=== PATIENT | male | born 2005 | race Two or more races ===

== ENCOUNTER 2025-02-27 16:01 | Emergency (ER) | payer BC, SELFPAY ==
[2025-02-27 16:29] VITALS: BP 128/80; PULSE 90; RESP 18; TEMP 39.4; O2SAT 97; BMI 27.1
--- NOTE | 2025-02-27 16:30 | XR_ITS ---
Examination: PA lateral chest 2 views TECHNIQUE: Upright PA lateral chest 2 views Exam date and time: February 27, 2025 1639 hours INDICATIONS: Fever sore throat difficulty breathing bodyaches beginning 3 days ago. FINDINGS: Normal heart size Lungs are clear. The osseous structures are intact IMPRESSION: No active disease
--- NOTE | 2025-02-27 16:31 | EDNOTE_ITS ---
Upper Respiratory Inf. RME/HPI General Chief Complaint: Flu Like Symptoms Stated Complaint: FEVER, SWOLLEN TONSILS, BODYACHES Time Seen by Provider: 02/27/25 16:14 Source: patient Arrival date/time: 02/27/25 16:01 19-year-old male with no known medical history presents to the emergency room with a chief complaint of fever, sore throat, difficulty breathing, body aches x 3 days Mode of arrival: ambulatory Limitations: no limitations Related Data Previous Rx's ?Medication ?Instructions ?Recorded acetaminophen 325 mg capsule 650 mg (2 x 325 mg) PO QI D PRN 02/27/25 fever or pain 7 days #30 caps azithromycin 500 mg tablet 500 mg PO QDAY 5 days #5 ta bs 02/27/25 Allergies Allergy/AdvReac Type Severity Reaction Status Date / Time PENICILLIN Allergy Intermediate Rash Uncoded 02/27/25 16:04 Review of Systems Review of Systems Systems Reviewed: All systems reviewed, normal except as documented Constitutional Constitutional: Reports system reviewed and no additional complaints, except as documented, Denies fatigue, Denies fever(s), Denies headache(s) and Denies weakness Eyes Eyes: Reports system reviewed and no additional complaints, except as doc umented, Denies blurry vision and Denies change in vision ENT Ears, Nose, Mouth, and Throat: Reports system reviewed and no additional complaints, except as documented, Denies otalgia, Denies headache(s), Denies nasal congestion, Reports sore throat, Denies throat swelling and Denies vertigo Cardiovascular Cardiovascular: Reports system reviewed and no additional complaints, except as documented, Denies chest pain, Denies dyspnea and Denies dyspnea on exertion Respiratory Respiratory: Reports system reviewed and no additional complaints, except as documented, Denies chest congestion, Denies cough, Denies dyspnea, Denies dyspnea on exertion and Denies wheezing Gastrointestinal Gastrointestinal: Reports system reviewed and no additional complaints, except as documented, Denies abdominal pain, Denies cramping, Denies nausea and Denies vomiting Genitourinary Genitourinary: Reports system reviewed and no additional complaints, except as documented, Denies dysuria and Denies hematuria Musculoskeletal Musculoskeletal: Reports system reviewed and no additional complaints, except as documented and Denies back pain Integumentary/Breasts Skin/Breast: Reports system reviewed and no additional complaints, except as documented and Denies wounds Neurologic Neurologic: Reports system reviewed and no additional complaints, except as documented, Denies confusion, Denies headache(s), Denies lack of coordination, Denies vertigo and Denies weakness Psychiatric Psychiatric: Reports system reviewed and no additional complaints, except as documented, Denies anxiety, Denies confusion, Denies depression, Denies paranoia, Denies suicidal ideation and Denies tactile hallucinations Endocrine Endocrine: Reports system reviewed and no additional complaints, except as documented and Denies fatigue Hematologic/Lymphatic Hematologic/Lymphatic: Reports system reviewed and no additional complaints, except as documented and Denies lymphadenopathy Allergic/Immunologic Allergic/Immunologic: Reports system reviewed and no additional complaints, except as documented, Denies throat swelling, Denies urticaria and Denies wheezing Past Medical History Social History SMOKING STATUS: Current every day smoker ED Exam General Limitations: Present no limitations General appearance: Present alert and in no apparent distress Head Head exam: Present atraumatic Eye Eye exam: Present normal appearance, PERRL and EOMI ENT ENT exam: Present normal exam, normal oropharynx and mucous membranes moist Expanded ENT Exam External ear exam: Present normal external inspection Mouth exam: Present normal external inspection Teeth exam: Present normal inspection Throat exam: Present tonsillar erythema and tonsillar exudate; Absent R peritonsillar mass, L peritonsillar mass or muffled voice Neck Neck exam: Present normal inspection, full ROM and trachea midline Chest Chest inspection: Present normal inspection and symmetric chest wall rise Respiratory Respiratory exam: Present normal lung sounds bilaterally Cardiovascular Cardiovascular exam: Present regular rate, normal rhythm and normal heart sounds Abdominal Exam Abdominal exam: Present soft and normal bowel sounds Extremities Exam Extremities exam: Present normal inspection and full ROM Back Exam Back exam: Present normal inspection and full ROM Neurological Exam Neurological exam: Present alert, oriented X3 and CN II-XII intact Psychiatric Psychiatric exam: Present normal affect and normal mood Skin Skin exam: Present warm, dry, intact and normal color Course Quality Measures none Orders Category Date Time Status Bedside COVID-19 Antigen Test NOW Care 02/27/25 16:30 Active Bedside Influenza A&B Antigen Test NOW Care 02/27/25 16:30 Completed XR chest 2V Stat Exams 02/27/25 16:30 Completed Acetaminophen Tab [Tylenol ES Tab] Med 02/27/25 16:36 Discontinued 1,000 mg PO X1 ONE Ibuprofen Tab [Motrin Tab] Med 02/27/25 16:36 Discontinued 600 mg PO X1 ONE cefTRIAXone [Rocephin] 1,000 mg Med 02/27/25 16:30 Discontinued Lidocaine 1% 20 ml [Xylocaine 1% 20 ML] 2.1 ml IM X1 Vital Signs Vital signs: Vital Signs Temperature 103 F H 02/27/25 16:29 Pulse Rate 90 02/27/25 16:29 Respiratory Rate 18 02/27/25 16:29 Blood Pressure 128/80 02/27/25 16:29 Pulse Oximetry (%) 97 02/27/25 16:29 Oxygen Delivery Method Room Air 02/27/25 16:29 O2 saturation 97% within normal limits Upper Respiratory Infection MDM Narrative MDM Narrative:: 19-year-old male with no known medical history presents to the emergency room with a chief complaint of fever, sore throat, difficulty breathing, body aches x 3 days Patient was febrile 103 ?F. He was not tachycardic and not tachypneic and his O2 saturation is 97 on room air. After reevaluation antipyretics patient's temperature dropped to 100.8. Lung sounds are clear bilaterally there is no wheezing or any abnormal breath sounds. COVID-19 and influenza test were both negative Chest x-ray was negative for any pneumonic infiltrates. ENT examination shows an erythemic posterior pharynx with bilateral exudates to the tonsillar pillars. There is a cobblestone appearance to the back of the pharynx. A shot of Rocephin was given to help with the patient's pharyngitis. Antibiotics were sent to the patient's pharmacy Patient was discharged and educated to follow-up with primary care provider in the next 24 to 48 hours and return to the emergency room for any evidence of worsening signs or symptoms Patient data External records reviewed:: [facility] previous records Clinical information provided by:: patient Social determinants that could affect healthcare access:: none Patient has the following chronic illnesses:: No chronic illness How is presenting disease/condition affected by chronic disease/condition?: no chronic disease Evaluation data The following diagnostics were reviewed and interpreted by me:: lab results and radiology exam(s) Lab and/or radiology exams considered but not ordered:: Labs and radiology exams considered and ordered Interpretation Summary: N/A Medications / Prescriptions Medications or Prescriptions considered but not ordered:: Rx given Medication administrations:: Medication Administration History Discontinued Medications Acetaminophen (Acetaminophen 500 Mg Tablet) 1,000 mg PO X1 ONE Stop: 02/27/25 16:37 Last Admin: 02/27/25 16:55 Dose: 1,000 mg Documented By: ISIDRO Ceftriaxone Sodium 1,000 mg/ (Lidocaine HCl 2.1 ml) 0 mg IM X1 ONE Stop: 02/27/25 16:31 Last Admin: 02/27/25 16:54 Dose: 1,000 mg Documented By: ISIDRO Ibuprofen (Ibuprofen Tab 600 Mg Tablet) 600 mg PO X1 ONE Stop: 02/27/25 16:37 Last Admin: 02/27/25 16:55 Dose: 600 mg Documented By: Rx given Consultations Consultation(s) initiated? (list below): No Diagnosis Upper Respiratory Differential Diagnosis: upper respiratory infection, viral infection, bronchitis, influenza and pharyngitis Most likely diagnosis given after review of the tests above:: Pharyngitis Admission Indicated Admission indicated?: not indicated Admission Request Was there a request for admission?: No Disposition Plan Disposition Plan: Discharge Discharge Attestation Discharge Attestation: The patient and all family members were given an opportunity to ask questions and understood the discharge instructions. Discharge instructions specifically effects, indications for sooner follow up or return to the emergency department, and the expected course of current diagnosis. Patient condition: Stable Discharge Plan Plan Patient Disposition: HOME (Self Care) Disposition Comment: Stable Prescriptions/Referrals Prescriptions/Med Rec: New azithromycin 500 mg tablet 500 mg PO QDAY 5 Days Qty: 5 0RF acetaminophen 325 mg capsule 650 mg PO QID PRN (Reason: fever or pain) 7 Days Qty: 30 0RF Referrals: No Primary/Family,Physician [Primary Care Provider] - In 1 week Problem List Clinical Impression: Pharyngitis Patient/Caregiver Discharge Instructions Education Materials: When You Have a Sore Throat Additional Instructions: Please follow-up with your primary care provider in the next 24 to 48 hours. Medication was sent to your pharmacy please pick it up and take it as indicated. For any evidence of worsening signs or symptoms return to the emergency room immediately Print Language: Azeri Stand Alone Forms: [employer] Award Info., Work/School Release, Patient Portal Info Letter PA/KAREN Supervising Physician INES/KAREN Supervising Physician: Dr Rojo
[2025-02-27] MEDS: cefTRIAXone 1,000 MG, LIDOCAINE 1% 20 ML 2.1 ML IM (16:54)
[2025-02-27 16:55] VITALS: TEMP 39.4
[2025-02-27] MEDS: IBUPROFEN TAB 600 MG TABLET PO (16:55)
[2025-02-27] MEDS: ACETAMINOPHEN 500 MG TABLET 1000 MG PO (16:55)
[2025-02-27 17:27] VITALS: TEMP 38.2
[2025-02-27 17:32] VITALS: TEMP 37.7
== END 2025-02-27 18:00 | disposition home or self-care (01) ==
PROVIDERS: Emergency Provider Emergency Medicine
DX: J02.9 Acute pharyngitis, unspecified (principal); F17.200 Nicotine dependence, unspecified, uncomplicated
CPT/HCPCS: 71046; 87400; 87811; 96372; 99283; J0696; J3490; A9270

== ENCOUNTER 2025-03-04 15:56 | Emergency (ER) | payer BC, SELFPAY ==
[2025-03-04 16:55] VITALS: BP 121/73; PULSE 60; RESP 18; TEMP 36.8; O2SAT 99
--- NOTE | 2025-03-04 17:05 | EDNOTE_ITS ---
ED General RME/HPI General Chief complaint: General Adult/Misc Complain Stated complaint: SHARP PAIN IN CHEST WHEN SWALLOWING FOOD X3-4DAYS Time Seen by Provider: 03/04/25 17:01 Arrival date/time: 03/04/25 15:56 RME / HPI RME / HPI narrative: 19-year-old male presents to the ED with complaint of right sided chest pain and right upper quadrant pain after eating. He denies vomiting or diarrhea, fever or chills, dysuria or frequency. He denies any cough or shortness of breath. Related Data Previous Rx's ?Medication ?Instructions ?Recorded famotidine 20 mg tablet 20 mg PO .Nightly GERD #30 t abs 03/04/25 pantoprazole 20 mg tablet,delayed 20 mg PO QAM GERD #3 0 tabs 03/04/25 release Allergies Allergy/AdvReac Type Severity Reaction Status Date / Time Penicillins Allergy Mild Rash Verified 03/04/25 16:02 Review of Systems Review of Systems Systems Reviewed: All systems reviewed, normal except as documented Past Medical History Social History SMOKING STATUS: Current every day smoker ED Exam Narrative Physical exam: A&O, afebrile and non-toxic appearing 19 year old male, no acute distress. Lung are clear, RRR, Abdomen is non-distended. Moves all extremities well. Course Course Course Narrative: Vitals are stable. EKG reveals Sinus Bradycardia at 53 with arrhythmia. No STEMI. XR Chest reveals: No active disease. US Abdomen reveals: No acute process. Quality Measures none Orders Category Date Time Status US abdomen limited Stat Exams 03/04/25 18:36 Completed XR chest 2V Stat Exams 03/04/25 18:36 Completed Famotidine [Pepcid] Med 03/04/25 22:22 Discontinued 20 mg PO X1 ONE Pantoprazole [Protonix] Med 03/04/25 22:22 Discontinued 20 mg PO X1 ONE Vital Signs Vital signs: Vital Signs Temperature 98.3 F 03/04/25 16:55 Pulse Rate 60 03/04/25 16:55 Respiratory Rate 18 03/04/25 16:55 Blood Pressure 121/73 03/04/25 16:55 Pulse Oximetry (%) 99 03/04/25 16:55 Oxygen Delivery Method Room Air 03/04/25 16:55 Discharge Plan Plan Patient Disposition: HOME (Self Care) Discharge Disposition comment: Stable Prescriptions/Referrals Prescriptions/Med Rec: New pantoprazole 20 mg tablet,delayed release (DR/EC) 20 mg PO QAM Qty: 30 0RF famotidine 20 mg tablet 20 mg PO .Nightly Qty: 30 0RF Referrals: No Primary/Family,Physician [Primary Care Provider] - In 1 week Problem List Clinical Impression: Chest pain due to GERD Patient/Caregiver Discharge Instructions Education Materials: GERD Lifestyle Changes, ED GERD (Adult) Additional Instructions: Follow-up with your primary care physician in 24 to 48 hours. Return to the ED for any new or worsening symptoms. Print Language: Eritrean Stand Alone Forms: [employer] [place] Info., Patient Portal Info Letter PA/DROP FORGER HELPER Supervising Physician PA/DROP FORGER HELPER Supervising Physician: Dr. Duran [facility] Narrative [facility] hospital course: 19-year-old male presents to the ED with complaint of right sided chest pain and right upper quadrant pain after eating. He denies vomiting or diarrhea, fever or chills, dysuria or frequency. He denies any cough or shortness of breath. A&O, afebrile and non-toxic appearing 19 year old male, no acute distress. Lung are clear, RRR, Abdomen is non-distended. Moves all extremities well. Vitals are stable. EKG reveals Sinus Bradycardia at 53 with arrhythmia. No STEMI. XR Chest reveals: No active disease. US Abdomen reveals: No acute process. Patient was given Pepcid 20mg and Protonix 20mg PO. Symptoms, exam and diagnostic studies are consistent with: GERD Patient was discharged home in stable condition. Patient/family advised to follow-up with their PCP in 24-48 hours. Encouraged to return to the ED for any new or worsening symptoms. Clinical Information Provided by patient Medical Records Reviewed None Meds/Rx Considered, not Ordered None Labs/Rad/Tests considered, not Ordered None Chronic Illness/Social Conditions which may negatively complicate care or outcome(s)-explain: None or not applicable EKG EKG Interpretation narrative: as above Lab Interpretation Labs: interpreted by me Lab(s) interpretation(s): as above Imaging Imaging interpretation: see narrative above Radiology reports / interpretation(s): as above Medication Administration(s) Medication Administration History Discontinued Medications Famotidine (Famotidine 20 Mg Tablet) 20 mg PO X1 ONE Stop: 03/04/25 22:23 Last Admin: 03/04/25 22:34 Dose: 20 mg Documented By: TEODORA Pantoprazole Sodium (Pantoprazole 20 Mg Tablet) 20 mg PO X1 ONE Stop: 03/04/25 22:23 Last Admin: 03/04/25 22:35 Dose: Not Given Documented By: TEODORA Non-Admin Reason: Patient Refused as above Diagnosis Differential diagnosis: Gastritis, PNA, GERD, ACS Differential dx and/or dx ruled out: PNA Most likely dx, and/or detailed dx discussion: GERD/Gastritis Dispositon Disposition: Discharge Home Disposition comments: Stable for discharge
--- NOTE | 2025-03-04 18:36 | XR_ITS ---
Examination: PA lateral chest 2 views Technique: Upright PA lateral chest 2 views Exam date and time: March 04, 20252006 hrs. Comparison February 28, 2025 Indications: Onset chest pain today. Findings: Normal heart size Lungs are clear. The osseous structures are intact Impression: No active disease
--- NOTE | 2025-03-04 18:36 | XR_ITS ---
Examination: Abdomen sonogram, Limited Date and time of exam: March 04, 2025 1723 hrs. Indications: Epigastric pain chest pain beginning 3 days ago Technique: Real-time hall scale transabdominal sonographic images of the upper abdomen obtained. Findings: Normal gallbladder Normal common bile duct 0.3 cm Pancreatic head 2.1 cm Liver 13.6 cm smooth contour Normal hepatopedal portal venous flow Patent IVC Impression: Negative examination
--- NOTE | 2025-03-04 22:27 | PD.EDRME ---
Rapid Medical Screening Exam RME Arrival date/time: 03/04/25 15:56 Chief Complaint: General Adult/Misc Complain Time Seen by Provider: 03/04/25 17:01 Vital signs: Vital Signs Temperature 98.3 F 03/04/25 16:55 Pulse Rate 60 03/04/25 16:55 Respiratory Rate 18 03/04/25 16:55 Blood Pressure 121/73 03/04/25 16:55 Pulse Oximetry (%) 99 03/04/25 16:55 Oxygen Delivery Method Room Air 03/04/25 16:55 Vital signs reviewed by provider: Yes RME Narrative: 19-year-old male presents to the ED with complaint of right sided chest pain and right upper quadrant pain after eating. He denies vomiting or diarrhea, fever or chills, dysuria or frequency. He denies any cough or shortness of breath.
[2025-03-04] MEDS: FAMOTIDINE 20 MG TABLET PO (22:34)
== END 2025-03-04 22:36 | disposition home or self-care (01) ==
PROVIDERS: Emergency Provider Family Medicine
DX: R07.89 Other chest pain (principal); K21.9 Gastro-esophageal reflux disease without esophagitis
CPT/HCPCS: 71046; 76705; 99284; A9270